=== PATIENT | male | born 1960 | race Caucasian/White ===

== ENCOUNTER 2017-02-08 14:35 | Emergency (ER) | payer OTHER ==
--- NOTE | 2017-02-08 14:55 | CPEKG ---
Heart Rate: 60 RR Interval: 1000 P-R Interval: 180 QRSD Interval: 118 QT Interval: 424 QTC Interval: 424 QRS [place]: 87 T Wave [place]: 28 EKG Severity - ABNORMAL ECG - EKG Impression: ATRIAL-VENTRICULAR DUAL-PACED COMPLEXES EKG Impression: NONSPECIFIC INTRAVENTRICULAR CONDUCTION DELAY Electronically Signed By: Dylan Renee 10-Feb-2017 17:09:33
--- NOTE | 2017-02-08 14:55 | CPEKG ---
Heart Rate: 60 RR Interval: 1000 P-R Interval: 180 QRSD Interval: 118 QT Interval: 424 QTC Interval: 424 QRS [place]: 87 T Wave [place]: 28 EKG Severity - ABNORMAL ECG - EKG Impression: ATRIAL-VENTRICULAR DUAL-PACED COMPLEXES EKG Impression: NONSPECIFIC INTRAVENTRICULAR CONDUCTION DELAY Electronically Signed By: Dylan Renee 10-Feb-2017 17:09:33
[2017-02-08] MEDS ORDERED: NS 500 ML IV ONE (15:11)
[2017-02-08 15:19] LABS: PLATELET COUNT 273 10^3/uL (150-400)
[2017-02-08 15:29] LABS: INR 0.98 (0.83-1.16); PROTIME(PATIENT) 12.9 SEC (12.0-15.0)
--- NOTE | 2017-02-08 15:37 | EDPHY ---
H & P Stated Complaint: sqeezing in arm, HERNANDEZ, had when had pacer Time Seen by Provider: 02/08/17 14:59 HPI/ROS: CHIEF COMPLAINT: Visual complaints, left hand pain, lightheaded HISTORY OF PRESENT ILLNESS: This is a 56-year-old male with history of bradycardia status post AV pacemaker placement who presents following an abrupt onset of lightheadedness. Patient has some difficulty describing the sensation but states that he feels like his head is from his body and he is not connected. Patient evidently had a migraine headache this morning, which consists of sparkly vision on the left visual field followed by a brief right- sided headache. This self-resolved as is typical for the patient. He then was at [employer] when he abruptly felt "lightheaded ", slightly near syncopal, but mostly felt as if he were disconnected. He then presented to the emergency department. On arrival to the emergency department patient describes recurrent migraine headache, with sparkly vision in the left visual field which has since resolved and now has been followed by significant right-sided headache. He reports a brief episode of feeling that his left hand was being squeezed and was painful. Patient denies any chest pain or shortness of breath. He denies palpitations, dizziness, or shortness of breath. He denies abdominal pain, nausea, vomiting. He denies word-finding difficulties, or speech difficulty. No numbness, tingling, weakness. Patient reports being otherwise well prior to these events. No recent vomiting or diarrhea. REVIEW OF SYSTEMS: Aside from elements discussed in the HPI, a comprehensive 10-point review of systems was reviewed and is negative. PAST MEDICAL HISTORY: Bradycardia, status post pacemaker placement. History of migraines. SOCIAL HISTORY: Nonsmoker. No alcohol. Here with his work partner. VITAL SIGNS Reviewed by me. GENERAL: Well-developed, well-nourished, complaining of a headache, and a sense of hyperacusis. HEENT: Atraumatic. Eyes: PERRL, EOMI, no nystagmus. No icterus. No injection. Mouth: moist mucous membranes. No erythema or lesions. Neck: No meningitis. Nontender to palpation. No adenopathy. LUNGS: Clear to auscultation bilaterally, no wheezes, rhonchi or rales. Pacemaker pocket in left upper chest. CARDIAC: Regular rate and rhythm, no rubs, murmurs or gallops. ABDOMEN: Soft, nontender, nondistended, bowel sounds normal. BACK: No CVA tenderness. EXTREMITIES: No trauma. No edema. Range of motion is normal throughout. NEURO: Alert and oriented, cranial nerves II through XII are intact. Motor strength 5 over 5 in all major muscle groups. Sensation intact to light touch. Normal gait. SKIN: Warm and dry, no rash. PSYCHIATRIC: Normal mentation, no agitation. - Personal History Current Tetanus/Diphtheria Vaccine: Yes Current Tetanus Diphtheria and Acellular Pertussis (TDAP): Yes - Medical/Surgical History Hx Asthma: No Hx Chronic Respiratory Disease: No Hx Diabetes: Yes Hx Cardiac Disease: No Hx Renal Disease: No Hx Cirrhosis: No Hx Alcoholism: No Hx HIV/AIDS: No Hx Splenectomy or Spleen Trauma: No Other PMH: pacer, low thyroid, gout, hip pain,. hardwear in wrist, foot surgery , tonsels Constitutional: Initial Vital Signs Temperature (C) 36.5 C 02/08/17 14:45 Heart Rate 64 02/08/17 14:45 Respiratory Rate 16 02/08/17 14:45 Blood Pressure 129/79 H 02/08/17 14:45 O2 Sat (%) 99 02/08/17 14:45 O2 Delivery Mode Room Air Allergies/Adverse Reactions: No Known Allergies Allergy (Unverified 02/08/17 14:49) Home Medications: Medication Instructions Recorded Allopurinol 02/08/17 Synthroid 02/08/17 Medical Decision Making - Diagnostics EKG Interpretation: 12-LEAD EKG: Please see the full report in [employer] [facility]. My interpretation: AV paced rhythm. Imaging Results: Imaging Impressions Head CT 02/08/17 15:13 Impression: 1. Normal CT brain without contrast. 2. No epidural or subdural hematoma. 3. No sinusitis. Findings and recommendations discussed with Emergency Department physician, Dawna Jacinto MD at 15:39 hour, 02/08/2017. Final report concurs with initial preliminary interpretation. Imaging: Discussed imaging studies w/ flake cutter operator Radiologist ED Course/Re-evaluation: 56-year-old male presenting with a constellation of symptoms which include abrupt onset of some lightheaded feeling, feeling somewhat "disconnected " followed by visual disturbance followed by headache, and pressure in his left hand. Initial laboratory evaluation is largely unremarkable. Patient has a negative troponin. Head CT was negative. 4:00 p.m.: On re-examination the patient reports that his primary concern now is his headache. Patient received Decadron and Toradol for headache pain. He was feeling significantly improved. Chemical Sales Representative from [employer] was consulted to interrogate the patient's pacemaker. After some delay, [employer] rep did present to the emergency department and was able to interrogate the patient's pacemaker. No a arrhythmias or pacemaker malfunction have been noted. Patient's course was discussed with from Neurology. Differential includes complex migraine versus TIA. Patient was offered admission to the hospital for evaluation for potential TIA. Patient would prefer to be discharged home with close follow-up with Neurology. Patient's is in agreement with this plan. Patient was instructed to begin taking 81 mg of aspirin and follow up with Dr. Malave tomorrow. Dr. Malave is aware. Differential Diagnosis: After history was obtained, and the physical exam performed, a differential for patient's constellation of symptoms was considered including, but not limited to , intracranial hemorrhage, migraine headache, TIA, ischemic cerebrovascular accident, hemorrhagic cerebrovascular accident, hypoglycemia, complex migraine, metastases, tumor, seizure, cardiac event, arrhythmia, hypoperfusion or electrolyte abnormality - Data Points Laboratory Results: Laboratory Results 02/08/17 15:00 02/08/17 15:00 02/08/17 02/08/17 02/08/17 15:00 15:00 15:00 WBC 9.20 10^3/uL 10^3/uL (3.80-9.50) RBC 4.87 10^6/uL 10^6/uL (4.40-6.38) Hgb 14.8 g/dL g/dL (13.7-17.5) Hct 42.7 % % (40.0-51.0) MCV 87.7 fL fL (81.5-99.8) MCH 30.4 pg pg (27.9-34.1) MCHC 34.7 g/dL g/dL (32.4-36.7) RDW 13.6 % % (11.5-15.2) Plt Count 273 10^3/uL 10^3/uL (150-400) MPV 9.0 fL fL (8.7-11.7) Neut % (Auto) 57.7 % % (39.3-74.2) Lymph % (Auto) 35.2 % % (15.0-45.0) [place] % (Auto) 5.3 % % (4.5-13.0) Eos % (Auto) 1.1 % % (0.6-7.6) Baso % (Auto) 0.4 % % (0.3-1.7) Nucleat RBC Rel Count 0.0 % % (0.0-0.2) Absolute Neuts (auto) 5.30 10^3/uL 10^3/uL (1.70-6.50) Absolute Lymphs (auto) 3.24 10^3/uL H 10^3/uL (1.00-3.00) Absolute Monos (auto) 0.49 10^3/uL 10^3/uL (0.30-0.80) Absolute Eos (auto) 0.10 10^3/uL 10^3/uL (0.03-0.40) Absolute Basos (auto) 0.04 10^3/uL 10^3/uL (0.02-0.10) Absolute Nucleated RBC 0.00 10^3/uL 10^3/uL (0-0.01) Immature Gran % 0.3 % % (0.0-1.1) Immature Gran # 0.03 10^3/uL 10^3/uL (0.00-0.10) PT 12.9 SEC SEC (12.0-15.0) INR 0.98 (0.83-1.16) APTT 28.2 SEC SEC (23.0-38.0) Sodium 142 mEq/L mEq/L (134-144) Potassium 4.0 mEq/L mEq/L (3.5-5.2) Chloride 103 mEq/L mEq/L (97-110) Carbon Dioxide 27 mEq/l mEq/l (22-31) Anion Gap 12 mEq/L mEq/L (8-16) BUN 23 mg/dL mg/dL (7-23) Creatinine 1.0 mg/dL mg/dL (0.7-1.3) Estimated GFR > 60 Glucose 103 mg/dL H mg/dL (70-100) Calcium 10.3 mg/dL mg/dL (8.5-10.4) Troponin I < 0.012 ng/mL ng/mL (0.000-0.034) Medications Given: Discontinued Medications Hydrocodone Bitart/Acetaminophen ([place] 5/325mg Prepack#6) 1 btl TAKEHOME EDNOW ONE Stop: 02/08/17 19:26 Last Admin: 02/08/17 19:35 Dose: 1 btl Dexamethasone (Decadron Injection) 10 mg IVP EDNOW ONE Stop: 02/08/17 15:59 Last Admin: 02/08/17 16:01 Dose: 10 mg Hydromorphone HCl (Dilaudid) 1 mg IVP EDNOW ONE Stop: 02/08/17 18:01 Last Admin: 02/08/17 18:02 Dose: 1 mg Sodium Chloride (Ns) 500 mls @ 1,000 mls/hr IV EDNOW ONE PRN Reason: Protocol Stop: 02/08/17 15:40 Last Admin: 02/08/17 15:38 Dose: 500 mls Ketorolac Tromethamine (Toradol) 30 mg IVP EDNOW ONE Stop: 02/08/17 15:59 Last Admin: 02/08/17 16:01 Dose: 30 mg Departure - Departure Disposition: Home, Routine, Self-Care Clinical Impression: Complex migraine, Possible TIA Condition: Good Instructions: Hydrocodone/Acetaminophen (By mouth), Transient Ischemic Attack ( ED), Migraine Headache (ED) Additional Instructions: Please follow up without fail with the neurologist, Dr. Malave, soon as possible. Begin taking aspirin, 81 mg daily. Return to the emergency department urgently if you experience for current headaches, visual changes, numbness or tingling in your arms or legs, speech difficulty, severe headache, palpitations, or other concerns. You may use Vicodin this evening for any residual headache pain. Referrals: Cory Dyer [Primary Care Provider] - As per Instructions Emmanuel Malave DO [Medical Doctor] - As per Instructions (Call for an appointment tomorrow. Be sure they know that this is an emergency department follow-up visit and that I discussed the case with Dr. Malave.)
[2017-02-08] MEDS ORDERED: KETOROLAC 30 MG/1 ML SDV IVP ONE (15:58)
[2017-02-08] MEDS ORDERED: DEXAMETHASONE 10 MG/ML VIAL IVP ONE (15:58)
[2017-02-08] MEDS ORDERED: HYDROmorphONE/DILAUDID 1 MG/ML INJ IVP ONE (18:00)
[2017-02-08] MEDS ORDERED: HYDROCOD/APAP 5/325 PREPACK#6 BTL TAKEHOME ONE (19:25)
[2017-02-08 19:37] VITALS: BP 114/71; PULSE 72; RESP 15; TEMP 98.1; O2SAT 95
== END 2017-02-08 19:36 | disposition home or self-care (01) ==
DX: G43.809 Other migraine, not intractable, without status migrainosus (principal); E86.9 Volume depletion, unspecified; E11.9 Type 2 diabetes mellitus without complications; Z95.0 Presence of cardiac pacemaker
CPT/HCPCS: 96374; J1100; J1170; J1885